=== PATIENT | female | born 1960 ===

== ENCOUNTER 2018-05-06 06:06 | Emergency (ER) | payer MEDICAID ==
[2018-05-06 06:07] VITALS: BMI 29.0
[2018-05-06 06:18] VITALS: TEMP 98.2
--- NOTE | 2018-05-06 06:35 | C.PDOC ---
History Of Present Illness pt complaining of worsening headache over the last few days. 4 days ago she had a fall with possible LOC - does not remember if she hit her head or not. Some nausea, no vomiting. mild photophobia. tolerating po. No visual changes, no weakness or incontinence Time Seen by Provider: 05/06/18 06:35 Chief Complaint (Nursing): Headache History Per: Patient History/Exam Limitations: no limitations Onset/Duration Of Symptoms: Days Severity: Moderate Pain Scale Rating Of: 4 Quality: Dull Preceeding Symptoms: Other (fall) Associated Symptoms: Photophobia (mild) Recent travel outside of the [place]: No Additional History Per: Family Past Medical History Reviewed: Historical Data, Nursing Documentation, Vital Signs Vital Signs: Last Vital Signs Temp 98.2 F 05/06/18 06:14 Pulse 74 05/06/18 06:14 Resp 14 05/06/18 06:14 BP 144/75 05/06/18 06:14 Pulse Ox 100 05/06/18 06:14 - Medical History PMH: Gastritis, HTN, Hypercholesterolemia Family History: States: No Known Family Hx - Social History Hx Tobacco Use: No Hx Alcohol Use: No Hx Substance Use: No - Immunization History Hx Tetanus Toxoid Vaccination: No Hx Influenza Vaccination: No Hx Pneumococcal Vaccination: No Review Of Systems Constitutional: Negative for: Fever, Chills Eyes: Negative for: Vision Change Gastrointestinal: Positive for: Nausea. Negative for: Abdominal Pain Musculoskeletal: Negative for: Back Pain Skin: Negative for: Rash Neurological: Positive for: Headache. Negative for: Weakness Psych: Negative for: Anxiety Physical Exam - Physical Exam Appears: Non-toxic, No Acute Distress Skin: Warm, Dry Head: Normacephalic Eye(s): bilateral: Normal Inspection, PERRL, EOMI Neck: Supple Chest: Symmetrical Cardiovascular: Rhythm Regular Respiratory: No Rales, No Rhonchi, No Wheezing Gastrointestinal/Abdominal: Soft, No Tenderness Back: Normal Inspection Extremity: Normal ROM Extremity: Bilateral: Atraumatic Neurological/Psych: Oriented x3, Normal Speech, Normal Cognition Gait: Steady ED Course And Treatment O2 Sat by Pulse Oximetry: 100 Pulse Ox Interpretation: Normal Disposition Counseled Patient/Family Regarding: Studies Performed, Diagnosis - Disposition Disposition Time: 06:35 Condition: FAIR Forms: [employer] (Armenian) - Clinical Impression Clinical Impression: Headache Physician Patient Turnover Patient Signed Over To: Parrish King Handoff Comments: pending , labs, ct , re-eval and dispo
[2018-05-06 06:42] LABS: BASO # 0.1 K/uL (0.0-0.2); BASO % 1.3 % (0.0-2.0); EOS % 0.4 % (0.0-4.0); HEMOGLOBIN 11.6 g/dL (11.0-16.0); LYMPH # 2.6 K/uL (1.0-4.3); MEAN CELL VOLUME 80.9 fL (81.0-99.0); MEAN CORPUSCULAR HEMOGLOBIN 27.4 pg (27.0-31.0); MEAN CORPUSCULAR HGB CONC 33.9 g/dL (33.0-37.0); MEAN PLATELET VOLUME 8.1 fL (7.2-11.7); MONO # 0.6 K/uL (0.0-0.8); MONO % 7.4 % (0.0-10.0); NEUT # 4.7 K/uL (1.8-7.0); NEUT % 58.9 % (50.0-75.0); NRBC % 0.1 % (0.0-2.0); RBC 4.23 Mil/uL (3.80-5.20); RED CELL DISTRIBUTION WIDTH 15.1 % (11.5-14.5)
[2018-05-06 06:58] LABS: ALB/GLOB RATIO 1.3 (1.0-2.1); ALBUMIN 4.6 g/dL (3.5-5.0); ALT/SGPT 28 U/L (9-52); AST/SGOT 22 U/L (14-36); BLOOD UREA NITROGEN 10 mg/dL (7-17); CALCIUM 9.3 mg/dl (8.6-10.4); GFR NON-AFRICAN AMERICAN > 60
[2018-05-06 06:59] VITALS: O2SAT 98
[2018-05-06 07:08] LABS: VENOUS BLOOD GAS BASE EXCESS 0.7 mmol/L (0.0-2.0); VENOUS BLOOD GAS PCO2 40 mmHg (40-60); VENOUS BLOOD GAS PO2 43 mm/Hg (30-55); VENOUS BLOOD PH 7.41 (7.32-7.43)
[2018-05-06 07:43] VITALS: BP 132/78; PULSE 67; RESP 20
--- NOTE | 2018-05-06 08:54 | CT ---
Date of service: 05/06/2018 PROCEDURE: CT HEAD WITHOUT CONTRAST. HISTORY: Headache COMPARISON: None available. Or TECHNIQUE: Axial computed tomography images were obtained through the head/brain without intravenous contrast. Radiation dose: Total exam DLP = 1143.17 mGy-cm. This CT exam was performed using one or more of the following dose reduction techniques: Automated exposure control, adjustment of the mA and/or kV according to patient size, and/or use of iterative reconstruction technique. FINDINGS: HEMORRHAGE: No intracranial hemorrhage. BRAIN: There is soft tissue mass lesion radius at the clivus extending to the adjacent the 1 skull base and intracranial fossa. The mass is also extending to the sphenoid sinus and associated with partial destruction of the clivus and sella turcica. Findings suspicious for malignant neoplasm the liver I see a. A normal the differential consideration includes clivus chordoma chondrosarcoma primary lymphoma or metastasis. There is diffuse effacement of the sulci suggestive of increased intracranial pressure. There is mass effect on midbrain is with the edema and leftward shift of the midbrain and maikol to the left. There is also mild mass effect on the 4th ventricle. VENTRICLES: The ventricles are mildly dilated. CALVARIUM: Unremarkable. PARANASAL SINUSES: The above-mentioned mass lesion is extending to the sphenoid sinus and associated with partial destruction of the septum in between the sphenoid sinuses. MASTOID AIR CELLS: Unremarkable as visualized. No inflammatory changes. OTHER FINDINGS: None. IMPRESSION: Large aggressive soft tissue mass lesion at the skull base measures approximately 5.2 centimeter in the AP diameter and 5 centimeter in the transverse diameter associated with destruction of the clivus and the base of the sella turcica and extended to the sphenoid sinuses. Findings are suspicious for malignant neoplasm such as a chordoma chondrosarcoma primary lymphoma or metastasis. Additional findings as discussed above. Preliminary report contains concordant findings was submitted by [facility].
== END 2018-05-06 08:34 | disposition home or self-care (01) ==
LOC: C.ER 06:06
DX: R51 Headache (principal); I10 Essential (primary) hypertension; E78.00 Pure hypercholesterolemia, unspecified; Z87.891 Personal history of nicotine dependence
CPT/HCPCS: 70450; 80053; 82009; 82803; 85025; 96374; 99285; J1885